=== PATIENT | female | born 1970 | race Caucasian/White ===

== ENCOUNTER 2017-06-06 11:53 | Emergency (ER) | payer BC ==
[~2017-06-06] VITALS: Ht 162.6 cm; Wt 90.4 kg
[2017-06-06 12:01] VITALS: TEMP 36.8; Ht 162.6 cm; Wt 90.4 kg
[2017-06-06] MEDS ORDERED: MoRPHine SULFATE 4 MG/ML 1 ML CARP\\VIAL ONE ×3 (12:38→14:45)
--- NOTE | 2017-06-06 12:48 | EMERGENCY ROOM VISIT NOTE ---
History Report prepared by Johnathon: Armani Delgado Under the Supervision of: Dr. Jarvis Pozo M.D. First contact with patient: 12:25 Chief Complaint: HEADACHE Stated Complaint: SEVERE KIRKPATRICK, VOMITING History of Present Illness The patient is a 46 year old female who presents to the Emergency Room with complaints of a constant headache starting this morning when she woke up. She states that it started on the right side, and it has moved to the center. The patient states that she went to be last night fine, and this morning it came on , and she states that it is the worst headache of her life. She states that she would get tension headaches before but never like this. The patient states that she has been nauseous and vomiting, though she does not have any fevers or chills. She additionally denies any numbness, abdominal pain, recent traumas, or anyone else sick around her. The patient states that she took ibuprofen and Advil for migraines. 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 The patient has a history of GERD. Source of History: patient Onset: this morning Position: head Symptom Intensity: worst of her life Quality: ache Timing: constant Associated Symptoms: + nausea, + vomiting, No fevers, No chills, No abdominal pain Review of Systems All systems have been listed, reviewed, and are negative other than those previously mentioned. Please see Additional Medical History Sheet. Past Medical & Surgical Medical Problems: (1) GERD (gastroesophageal reflux disease) Surgical Problems: (1) History of appendectomy Family History Cancer Diabetes mellitus Heart disease Lung disease Social History Smoking Status: Never Smoker Marital Status: Housing Status: lives with family Occupation Status: employed Current/Historical Medications Scheduled Esomeprazole Magnesium (Nexium), 20 MG PO DAILY Fluoxetine (Prozac), 10 MG PO DAILY Montelukast Sodium (Singulair), 10 MG PO DAILY Scheduled PRN Lorazepam (Ativan), 1 MG PO HS PRN for Sleep Allergies Coded Allergies: Ampicillin (Unverified Allergy, Intermediate, HIVES, 06/06/17) Codeine (Unverified Allergy, Intermediate, HIVES, 06/06/17) Penicillins (Unverified Allergy, Intermediate, HIVES, 06/06/17) Physical Exam Vital Signs Date Time Temp Pulse Resp B/P (MAP) Pulse Ox O2 Delivery O2 Flow Rate FiO2 06/06/17 17:25 68 16 95/47 98 Room Air 06/06/17 16:10 73 18 123/66 95 Room Air 06/06/17 13:46 82 16 142/80 98 Room Air 06/06/17 12:01 36.8 101 20 132/83 97 Room Air Physical Exam GENERAL: Patient appears to be in moderate to severe distress. Patient awake, alert, oriented x 3. Patient follows commands. Patient does not appear toxic. Patient is adequately hydrated and well-nourished. SKIN: No erythema, pallor, cyanosis or rash HEENT: Normal head, pupils equal, reactive to light and accommodation. Photophobia Ears normal. Oral cavity and posterior pharynx appear normal. Neck: No meningeal findings. Without adenopathy, no neck vein distention. LUNGS: Clear to auscultation. No wheezes, no rales, no rhonchi. HEART: No murmurs. No gallops. No rubs ABDOMEN: No masses, no rebound, no hepatomegaly or splenomegaly. EXTREMITIES: No signs of trauma. No pedal or pretibial edema. No calf or thigh tenderness. NEUROLOGIC: Cranial nerves II-XII within normal limits. No gross motor sensory function deficits. Medical Decision & Procedures ER Provider Diagnostic Interpretation: Radiology results as stated below per my review and radiologist interpretation: HEAD CT NONCONTRAST CT DOSE: 669.45 mGycm HISTORY: worst headache TECHNIQUE: Multiaxial CT images of the head were performed without the use of intravenous contrast. Automated exposure control was utilized for this study. A dose lowering technique was utilized adhering to the principles of ALARA. Comparison: Brain MRI 01/08/2013. Findings: The paranasal sinuses and mastoid air cells are clear. The calvarium and skull base are intact. The ventricles and sulci are within normal limits. There is no mass, hematoma, midline shift, or acute infarct. Impression: No acute intracranial abnormality. Electronically signed by: Star Mcwilliams M.D. 06/06/2017 1:28 PM Dictated Date/Time: 06/06/2017 1:22 PM Laboratory Results 06/06/17 12:50 Red Blood Count 3.97, Mean Corpuscular Volume 86.4, Mean Corpuscular Hemoglobin 27.5, Mean Corpuscular Hemoglobin Concent 31.8, Mean Platelet Volume 9.4, Neutrophils (%) (Auto) 91.0, Lymphocytes (%) (Auto) 5.6, Monocytes (%) (Auto) 2.9, Eosinophils (%) (Auto) 0.3, Basophils (%) (Auto) 0.1, Neutrophils # (Auto) 9.22, Lymphocytes # (Auto) 0.57, Monocytes # (Auto) 0.29, Eosinophils # (Auto) 0.03, Basophils # (Auto) 0.01 06/06/17 12:50 Test 06/06/17 12:50 White Blood Count 10.13 K/uL (4.8-10.8) Red Blood Count 3.97 M/uL (4.2-5.4) Hemoglobin 10.9 g/dL (12.0-16.0) Hematocrit 34.3 % (37-47) Mean Corpuscular Volume 86.4 fL (80-100) Mean Corpuscular Hemoglobin 27.5 pg (25-34) Mean Corpuscular Hemoglobin Concent 31.8 g/dl (32-36) Platelet Count 214 K/uL (130-400) Mean Platelet Volume 9.4 fL (7.4-10.4) Neutrophils (%) (Auto) 91.0 % Lymphocytes (%) (Auto) 5.6 % Monocytes (%) (Auto) 2.9 % Eosinophils (%) (Auto) 0.3 % Basophils (%) (Auto) 0.1 % Neutrophils # (Auto) 9.22 K/uL (1.4-6.5) Lymphocytes # (Auto) 0.57 K/uL (1.2-3.4) Monocytes # (Auto) 0.29 K/uL (0.11-0.59) Eosinophils # (Auto) 0.03 K/uL (0-0.5) Basophils # (Auto) 0.01 K/uL (0-0.2) RDW Standard Deviation 48.3 fL (36.4-46.3) RDW Coefficient of Variation 15.3 % (11.5-14.5) Immature Granulocyte % (Auto) 0.1 % Immature Granulocyte # (Auto) 0.01 K/uL (0.00-0.02) Urine Color YELLOW Urine Appearance CLEAR (CLEAR) Urine pH 5.5 (4.5-7.5) Urine Specific [place] 1.027 (1.000-1.030) Urine Protein NEG (NEG) Urine Glucose (UA) NEG (NEG) Urine Ketones TRACE (NEG) Urine Occult Blood NEG (NEG) Urine Nitrite NEG (NEG) Urine Bilirubin NEG (NEG) Urine Urobilinogen NEG (NEG) Urine Leukocyte Esterase NEG (NEG) Urine Test NEG (NEG) Anion Gap 8.0 mmol/L (3-11) Est Creatinine Clear Calc Drug Dose 83.2 ml/min Estimated GFR () 87.1 Estimated GFR (Non- 75.1 BUN/Creatinine Ratio 22.5 (10-20) Calcium Level 8.7 mg/dl (8.5-10.1) Laboratory results as stated above per my review. Medications Administered Medications (Trade) Dose Ordered Sig/Mckinley Route Start Time Stop Time Status Last Admin Dose Admin Morphine Sulfate (MoRPHine SULFATE INJ) 8 mg Q1H PRN IV 06/06/17 12:45 06/06/17 18:13 DC 06/06/17 14:48 8 MG Ondansetron HCl (Zofran Inj) 4 mg Q1HWA PRN IV 06/06/17 12:45 06/06/17 18:13 DC 06/06/17 14:48 4 MG Sodium Chloride 1,000 ml @ 1,000 mls/hr Q1H ONCE IV 06/06/17 14:45 06/06/17 15:44 DC 06/06/17 14:48 1,000 MLS/HR Ondansetron HCl (Zofran Odt) 4 mg ONE ONCE PO 06/06/17 18:00 06/06/17 18:01 DC 06/06/17 17:50 4 MG ED Course 1225: Past medical records reviewed. The patient was evaluated in room A2. A complete history and physical examination was performed. 1245: Zofran Inj 4mg IV 1444: I reevaluated the patient, and she still has her headache. 1445: Sodium Chloride 1000 ml @ 1000 mls/hr IV 1630: I reassessed the patient, and she states that she is feeling much better and is in no pain. 1748: I reevaluated the patient, and she was feeling better, though she just vomited. She is getting medication, and then she will be going home. She is ready for discharge. 1800: Zofran ODT 4mg PO Medical Decision Nurses notes reviewed. Medical history sheet reviewed. Differential diagnosis includes but is not limited to: tension, migraine, cluster, sinus headache, intracerebral mass, meningitis, encephalitis, and subarachnoid bleed. Multiple labs and imaging were obtained. The patient had significant relief with the above medications. I do not believe the patient requires a lumbar puncture. The patient has no signs of encephalitis or meningitis. I do not believe she has a subarachnoid bleed. I believe the patient has a tension headache. She has had headaches like this in the past but never this severe. The patient also received IV fluids which I believe helped. The patient had complete resolution of her pain prior to discharge. Medication Reconcilliation Current Medication List: was personally reviewed by me Blood Pressure Screening Patient's blood pressure: Normal blood pressure Blood pressure disposition: Did not require urgent referral Impression Primary Impression: Tension headache Scribe Attestation The scribe's documentation has been prepared under my direction and personally reviewed by me in its entirety. I confirm that the note above accurately reflects all work, treatment, procedures, and medical decision making performed by me. Departure Information Dispostion Home / Self-Care Referrals No Doctor, Assigned (PCP) Forms HOME CARE DOCUMENTATION FORM, IMPORTANT VISIT INFORMATION Patient Instructions My [facility] School Places Additional Instructions Drink extra fluids. REST Return here or to your family physician if your headache gets worse.
[2017-06-06] MEDS: MoRPHine SULFATE 10 MG/ML CARP/VIAL IV PRN ×4 (12:58→17:51)
[2017-06-06] MEDS: ONDANSETRON INJ 2 MG/ML 2 ML VIAL IV PRN ×2 (12:58→14:48)
[2017-06-06 13:20] LABS: BASO % 0.1 %; BASO ABS # 0.01 K/uL (0-0.2); COMPLETE YES; EOS % 0.3 %; HEMATOCRIT 34.3 % (37-47); IG% 0.1 %; LYMPH % 5.6 %; LYMPH ABS # 0.57 K/uL (1.2-3.4); MEAN CELL VOLUME 86.4 fL (80-100); MEAN CORPUSCULAR HEMOGLOBIN 27.5 pg (25-34); MEAN CORPUSCULAR HGB CONC 31.8 g/dl (32-36); MEAN PLATELET VOLUME 9.4 fL (7.4-10.4); MONO % 2.9 %; PLATELET COUNT 214 K/uL (130-400); RED BLOOD COUNT 3.97 M/uL (4.2-5.4); WHITE BLOOD COUNT 10.13 K/uL (4.8-10.8)
--- NOTE | 2017-06-06 13:29 | DIAGNOSTIC IMAGING REPORT ---
HEAD CT NONCONTRAST CT DOSE: 669.45 mGycm HISTORY: worst headache TECHNIQUE: Multiaxial CT images of the head were performed without the use of intravenous contrast. Automated exposure control was utilized for this study. A dose lowering technique was utilized adhering to the principles of ALARA. Comparison: Brain MRI 01/08/2013. Findings: The paranasal sinuses and mastoid air cells are clear. The calvarium and skull base are intact. The ventricles and sulci are within normal limits. There is no mass, hematoma, midline shift, or acute infarct. Impression: No acute intracranial abnormality. Electronically signed by: Star Mcwilliams M.D. 06/06/2017 1:28 PM Dictated Date/Time: 06/06/2017 1:22 PM
[2017-06-06 13:38] LABS: URINE APPEARANCE CLEAR (CLEAR); URINE BILIRUBIN NEG (NEG); URINE COLOR YELLOW; URINE NITRITE NEG (NEG); URINE PH 5.5 (4.5-7.5); URINE SPECIFIC GRAVITY 1.027 (1.000-1.030); UROBILINOGEN NEG (NEG); ZZUR CULT IF INDIC CLEAN CATCH NO
[2017-06-06 13:39] LABS: BUN/CREATININE RATIO 22.5 (10-20); CALCIUM 8.7 mg/dl (8.5-10.1); CREATININE 0.91 mg/dl (0.60-1.20); POTASSIUM 3.7 mmol/L (3.5-5.1)
[2017-06-06 13:40] LABS: MANUAL MICROSCOPIC REQUIRED? NO; REVIEW REQ? NO
[2017-06-06] MEDS ORDERED: ESOM20CA PO (14:26)
[2017-06-06] MEDS ORDERED: MONT1TAB3 PO (14:26)
[2017-06-06] MEDS ORDERED: FLUO10CA48 PO (14:26)
[2017-06-06] MEDS ORDERED: LORA-741 PO (14:26)
[2017-06-06] MEDS ORDERED: SODIUM CHLORIDE 0.9% 1000ML 1,000 ML IV ONE (14:45)
[2017-06-06 17:25] VITALS: BP 95/47; PULSE 68; O2SAT 98
[2017-06-06] MEDS ORDERED: ONDANSETRON 4MG OD TAB PO ONE (18:00)
== END 2017-06-06 18:08 | disposition home or self-care (01) ==
LOC: C.EDB 11:54 → C.EDC 18:08
DX: G44.209 Tension-type headache, unspecified, not intractable (principal); K21.9 Gastro-esophageal reflux disease without esophagitis; Z80.9 Family history of malignant neoplasm, unspecified; Z83.3 Family history of diabetes mellitus; Z82.49 Family history of ischemic heart disease and other diseases of the circulatory system; Z83.6 Family history of other diseases of the respiratory system; Z79.899 Other long term (current) drug therapy

== ENCOUNTER → 2017-10-24 | Outpatient (CLI) | payer BC ==
[~2017-10-24] MED LIST: ESOM20CA PO; FLUO10CA48 PO; LORA-741 PO; MONT1TAB3 PO
--- NOTE | 2017-11-01 15:06 | MAMMOGRAPHY REPORT ---
BILATERAL DIGITAL SCREENING MAMMOGRAM TOMOSYNTHESIS WITH CAD: 10/24/2017 CLINICAL HISTORY: Routine screening. Patient has no complaints. TECHNIQUE: Breast tomosynthesis in addition to standard 2D mammography was performed. Current study was also evaluated with a Computer Aided Detection (CAD) system. COMPARISON: Mammograms from [facility] dated 07/16/2016, and 06/13/2012 him a as well as 12/13 and 05/26/2010 mammograms - [facility]. BREAST COMPOSITION: There are scattered areas of fibroglandular density in both breasts. FINDINGS: There is evidence of prior bilateral reduction mammoplasty. There are scattered benign ri m calcifications and stable benign-appearing microcalcifications in the anterior aspect of each breas t. However, there is a new grouping of calcifications is identified in the approximate 9:00 posterio r left breast, not present on any of the prior available mammograms. Although this may still represe nt an area of dystrophic calcification, additional spot magnification views are recommended. There are stable asymmetries bilaterally. No other suspicious mass, architectural distortion or clus ter of microcalcifications is seen. IMPRESSION: ACR BI-RADS CATEGORY 0: INCOMPLETE EVALUATION: NEED ADDITIONAL IMAGING EVALUATION The new grouping of microcalcifications in the approximate 9:00 posterior left breast need additional imaging evaluation. The patient will be called to schedule an appointment. Approximately 10% of breast cancers are not detected with mammography. A negative mammographic report should not delay biopsy if a clinically suggestive mass is present. Joycelyn Fox M.D. ay/:11/01/2017 10:57:06 Referral And Information Aide: Christianne RICE(Ti)(Rachele)(MIMI), [facility] letter sent: Addl Imaging 0 BI-RADS Code: ACR BI-RADS Category 0: Incomplete Evaluation: Need Additional Imaging Evaluation
== END | disposition home or self-care (01) ==
LOC: C.MAMM 09:28
PROVIDERS: ATTEND Family Medicine
DX: Z12.31 Encounter for screening mammogram for malignant neoplasm of breast (principal)

== ENCOUNTER → 2017-11-06 | Outpatient (CLI) | payer BC ==
--- NOTE | 2017-11-06 15:10 | MAMMOGRAPHY REPORT ---
UNILATERAL LEFT DIGITAL DIAGNOSTIC MAMMOGRAM: 11/06/2017 CLINICAL HISTORY: Callback from screening mammogram for left breast calcifications. TECHNIQUE: Spot magnification left CC and ML views were obtained. COMPARISON: Comparison is made to exams dated: 10/24/2017 mammogram - [facility], mammogram, 06/13/2012 mammogram - [facility], 12/13/2011 mammogram, mammogram - [facility], and 04/05/2009 mammogram - [facility]. BREAST COMPOSITION: There are scattered areas of fibroglandular density in the left breast. FINDINGS: Spot magnification views of the left breast demonstrate a new 4 mm cluster of coarse heter ogeneous calcifications within the left upper inner quadrant posteriorly. Given the history of prior reduction mammoplasty, the calcifications may represent dystrophic calcifications from fat necrosis. However, given that the calcifications are new, they are indeterminate and stereotactic biopsy is r ecommended for further evaluation. IMPRESSION: ACR BI-RADS CATEGORY 4: SUSPICIOUS New 4 mm cluster of coarse heterogeneous calcifications within the left upper inner quadrant. The ca lcifications are indeterminate and stereotactic biopsy is recommended for further evaluation. A phone call was made to the physician's office to confirm faxed results were received. The patient has been verbally notified of the results. She tentatively scheduled the biopsy before leaving the [facility]. Approximately 10% of breast cancers are not detected with mammography. A negative mammographic report should not delay biopsy if a clinically suggestive mass is present. Edilia Delong M.D. /:11/06/2017 14:29:22 Landscape Architect And Planner: Dian RICE(R)(Rachele), [facility] letter sent: Abnormal 4/5 BI-RADS Code: ACR BI-RADS Category 4: Suspicious
== END | disposition home or self-care (01) ==
LOC: C.MAMM 13:37
PROVIDERS: ATTEND Family Medicine
DX: R92.1 Mammographic calcification found on diagnostic imaging of breast (principal)

== ENCOUNTER → 2017-11-13 | Outpatient (CLI) | payer BC ==
--- NOTE | 2017-11-13 13:14 | Discharge Instructions ---
Discharge Instructions Procedure Procedure Date: Nov 13, 2017. Reason for visit: Left Calcifications. Discharge Discharge Date: Nov 13, 2017. Discharge Diagnosis: status post breast biopsy Instructions Activity Recommendations: Additional Limitations (see below) Return to School/Work: no limitations Recommended Home Diet: No Limitations Provider Instructions: ACTIVITY RECOMMENDATIONS: * No lifting, pushing, pulling or exercising the affected side for three days. RETURN TO SCHOOL/WORK: * You may return to work/school after the procedure, but do not perform any strenuous activities for 24 to 48 hours. MEDICATIONS: * Tylenol (two 325 mg) every four to six hours if needed for mild pain (if not allergic to Tylenol). DIET: * Resume previous diet. SPECIAL CARE INSTRUCTIONS: * Keep biopsy site dry for 24 hours. May shower after 24 hours, but do not soak (bathe) incision. * May remove Tegaderm (plastic patch) tomorrow AFTER showering. * Leave the steri-strips on for one week. Allow the steri-strips to fall off by themselves. If not off after one week, you may remove them. You may place a Bandaid crosswise over the strips, if desired. * Apply ice 10 minutes on and 10 minutes off as needed. * Wear a bra at bedtime to sleep more comfortably for 2-3 days. * Your referring physician should have the results after approximately 5 to 7 business days. * Call for unusual bleeding, fever, drainage, etc or if you have any questions call during normal business hours or after hours call Dr Delong, . FOLLOW UP VISIT: Follow-up with Referring Physician as scheduled. Allergies Coded Allergies: Ampicillin (Unverified Allergy, Intermediate, HIVES, 06/06/17) Codeine (Unverified Allergy, Intermediate, HIVES, 06/06/17) Penicillins (Unverified Allergy, Intermediate, HIVES, 06/06/17) Damon Carmichael Recommendations: Call your doctor if: * Temperature above 101 degrees * Pain not relieved by pain medicine ordered * There is increased drainage or redness from any incision * You have any unanswered questions or concerns. Your Doctors Instructions noted above were prepared by provider Edilia Delong. Patient Signature Section: Patient Instructions Signature Page Brittany Amanda Patient (or Guardian) Signature/Date: I have read and understand the instructions given to me by my caregivers. Caregiver/RN/Doctor Signature/Date: The above-named patient and/or guardian has received patient instructions on this date. + Original Patient Signature Page (only) stays with chart. Please make copy for patient.
--- NOTE | 2017-11-13 15:38 | MAMMOGRAPHY REPORT ---
STEREOTACTIC GUIDED BIOPSY LEFT BREAST: 11/13/2017 CLINICAL HISTORY: Indeterminate calcifications in the left upper inner quadrant. PATIENT CONSENT: The procedure, risks, benefits, and alternatives of stereotactic biopsy with clip pl acement were discussed with the patient, and verbal and written consent was obtained. A timeout was performed immediately prior to the procedure. PROCEDURE DESCRIPTION: With stereotactic guidance, aseptic technique, and lidocaine as a local anesth etic (1% lidocaine to anesthetize the skin and 1% lidocaine with epinephrine to anesthetize the deepe r tissues), the calcifications of concern in the left upper inner quadrant posteriorly were sampled m ultiple times with a 9-gauge vacuum-assisted biopsy needle (Polisofia). The path of approach was c raniocaudal. The specimen radiograph demonstrates calcifications to be present in the samples. A me anand marker clip was placed at the biopsy site. This was confirmed on postprocedure mammograms. D irect pressure was applied at the biopsy site and hemostasis was readily achieved. The patient amanda ated the procedure without complication. She was given wound care instructions. COMPARISON: Comparison is made to exams dated: 11/06/2017 mammogram, 10/24/2017 mammogram - [facility], 07/16/2016 mammogram, 06/13/2012 mammogram - [facility], mammogram, and 05/26/2010 mammogram - [facility]. IMPRESSION: STEREOTACTIC GUIDED BIOPSY Stereotactic biopsy of indeterminate calcifications in the left upper inner quadrant, with clip place ment. The patient will receive pathology results from her referring provider. Edilia Delong M.D. /:11/13/2017 13:15:42 Delivery Clerk: Madelin Phelps, [facility]
--- NOTE | 2017-11-13 15:42 | MAMMOGRAPHY REPORT ---
UNILATERAL LEFT DIGITAL DIAGNOSTIC MAMMOGRAM: 11/13/2017 CLINICAL HISTORY: Status post left breast biopsy. TECHNIQUE: Postprocedural left CC and ML views were obtained. COMPARISON: Comparison is made to exams dated: 11/06/2017 mammogram, 10/24/2017 mammogram - [facility], 07/16/2016 mammogram, 06/13/2012 mammogram - [facility], mammogram, and 05/26/2010 mammogram - [facility]. BREAST COMPOSITION: There are scattered areas of fibroglandular density in the left breast. FINDINGS: A new biopsy marker clip is seen at the site of the biopsied calcifications in the left up per inner quadrant posteriorly. No significant postbiopsy hematoma is seen. IMPRESSION: POST PROCEDURE IMAGING FOR MARKER PLACEMENT New biopsy marker clip status post left breast stereotactic biopsy. Pathology results are pending. Approximately 10% of breast cancers are not detected with mammography. A negative mammographic report should not delay biopsy if a clinically suggestive mass is present. Edilia Delong M.D. ah/:11/13/2017 13:31:02 Sixth Grade Teacher: Madelin Phelps [facility] BI-RADS Code: Post Procedure Imaging For Marker Placement
== END | disposition home or self-care (01) ==
LOC: C.MAMM 12:32
PROVIDERS: ATTEND Family Medicine
DX: R92.1 Mammographic calcification found on diagnostic imaging of breast (principal); N60.32 Fibrosclerosis of left breast; R92.0 Mammographic microcalcification found on diagnostic imaging of breast; N64.9 Disorder of breast, unspecified

== ENCOUNTER → 2018-01-09 | Outpatient (CLI) | payer BC ==
--- NOTE | 2018-01-09 12:17 | DIAGNOSTIC IMAGING REPORT ---
GI SERIES W/AIR ROUTINE CLINICAL HISTORY: 47 years-old Female presenting with NAUSEA,VOMITING,BLOATING,ATYPICAL CHEST PAIN. TECHNIQUE: A standard air contrast upper GI series was performed. Spot images of the esophagus and stomach were obtained in multiple obliquities both upright and prone. COMPARISON: None. FINDINGS: The patient swallowed barium without difficulty. The esophagus is structurally normal without evidence of intrinsic or extrinsic mass. The esophageal mucosal pattern is normal. No gastroesophageal reflux was elicited by having the patient perform the Valsalva maneuver. The gastroesophageal junction distends normally. The stomach is normal in configuration and demonstrates normal distensibility. No mass or ulceration is identified. There was no evidence of gastritis. The duodenal bulb and sweep are unremarkable. Fluoroscopy dosage (mGy): Not available. Fluoroscopy time: 1.1 minutes. Number of fluoroscopic spot images: 24. IMPRESSION: 1. Normal fluoroscopic examination of the esophagus, stomach, and duodenum. Electronically signed by: Ambrosio Barfield M.D. 01/09/2018 12:16 PM Dictated Date/Time: 01/09/2018 12:15 PM
== END | disposition home or self-care (01) ==
LOC: C.RAD 11:41
PROVIDERS: ATTEND Internal Medicine
DX: R11.2 Nausea with vomiting, unspecified (principal); R07.89 Other chest pain; R14.0 Abdominal distension (gaseous)

== ENCOUNTER → 2018-01-16 | Outpatient (CLI) | payer BC ==
--- NOTE | 2018-01-16 14:52 | EXERCISE STRESS TEST ---
REASON FOR STUDY: Shortness of breath/chest pain. Baseline EKG normal sinus rhythm, ventricular rate of 71, no significant ST abnormalities. Stress EKG: The patient exercised for 9 minutes, achieving 10.10 METS. Heart rate elvia from 90 up to 153 beats per minute, representing 88% maximum predicted heart rate. Blood pressure elvia from 106/72 to 132/62. During exercise, patient had no significant chest pain. She did develop dyspnea early with exercise that persisted throughout into recovery. Stress EKG showed no significant exercise-induced ST abnormalities or arrhythmias. IMPRESSION: 1. Negative exercise EKG for ischemia at maximal predicted heart rate of 88%. 2. Above average functional capacity. The patient exercised 9 minutes, achieving 10.1 METS. 3. Normal hemodynamic response to exercise. 4. No exercise-induced chest pain. There was exercise-induced dyspnea early in exercise. 5. Moreno treadmill score of 9, representing low risk for adverse cardiac events. MTDD
== END | disposition home or self-care (01) ==
LOC: C.CPL 10:43
PROVIDERS: ATTEND Family Medicine
DX: R06.00 Dyspnea, unspecified (principal); R07.9 Chest pain, unspecified